=== PATIENT | male | born 1950 ===

== ENCOUNTER 2022-12-27 02:00 | Inpatient (IN) | payer MEDICARE, BC ==
[2022-12-27] MEDS ORDERED: Albuterol/Ipratropium 3.0-0.5 MG/3 ML Neb Soln NEB ONE ×2 (02:13→03:00)
[2022-12-27] MEDS ORDERED: Sodium Chloride 0.9% 10 ML Syringe FLUSH PRN ×2 (02:13→04:40)
[2022-12-27] MEDS ORDERED: methylPREDNISolone Sodium Succinate 125 MG/2 ML SDV IVPUSH ONE (02:13)
[2022-12-27 02:34] LABS: BASOPHILS PERCENT AUTO 0.6 % (0.0-1.0); EOSINOPHILS PERCENT AUTO 3.6 % (1.0-3.0); HEMATOCRIT 45.7 % (40.0-54.0); HEMOGLOBIN 16.2 g/dL (14.0-18.0); LYMPHOCYTES PERCENT AUTO 15.3 % (20.5-50.1); MEAN CORPUSCULAR HEMOGLOBIN 33.8 pg (27.0-34.0); MEAN CORPUSCULAR HGB CONC 35.4 g/dL (33.0-35.0); MEAN CORPUSCULAR VOLUME 95.2 fL (80-100); MONOCYTES PERCENT AUTO 11.7 % (2-8); NEUTROPHILS PERCENT AUTO 68.8 % (42.2-75.2); PLATELET COUNT,PLT 273 10^3/uL (150-450); WHITE BLOOD CELL COUNT,WBC 9.5 10^3/uL (5.0-10.0)
[2022-12-27 02:39] LABS: O2 DELIVERY DEVICE NON REBR MASK
[2022-12-27 02:40] LABS: BASE EXCESS ARTERIAL -2 mmol/L ((-2)-(+3)); BICARBONATE,ARTERIAL 24.9 mmol/L (22-26); O2 SATURATION ARTERIAL 100 % (95-100); PCO2 ARTERIAL 51 mmHg (35-45); PH,ARTERIAL 7.31 (7.35-7.45); PO2 ARTERIAL 206 mmHg (70-100)
[2022-12-27 02:41] LABS: ALLEN TEST positive
[2022-12-27 02:50] LABS: B-TYPE NATRIURETIC PEPTIDE,BNP 30 pg/ml (0-100)
[2022-12-27 02:53] LABS: PROTHROMBIN TIME 9.8 SEC (9.0-12.0)
[2022-12-27 02:57] LABS: A/G RATIO 1.1; ALANINE AMINOTRANSFERASE,ALT 22 U/L (16-63); ALBUMIN 3.7 g/dL (3.4-5.0); ALKALINE PHOSPHATASE 81 U/L (46-116); ANION GAP 13.9 mEq/L (7-13); ASPARTATE AMNIOTRANSFERASE,AST 22 U/L (15-37); BILIRUBIN TOTAL 0.4 mg/dL (0.2-1.0); BLOOD UREA NITROGEN,BUN 17 mg/dL (7-18); BUN/CREATININE RATIO 20.5 (No establ ref range); C-REACTIVE PROTEIN 0.21 ng/dL (<=0.30); CALCIUM 9.1 mg/dL (8.5-10.1); CARBON DIOXIDE,CO2 28 mmol/L (21-32); CHLORIDE,CL 98 mmol/L (98-107); CREATININE 0.83 mg/dL (0.70-1.30); GLUCOSE RANDOM 101 mg/dL (70-99); LACTIC ACID 1.2 mmol/L (0.4-2.0); POTASSIUM,K 3.9 mmol/L (3.5-5.1); PROTEIN TOTAL,TP 7.2 g/dL (6.4-8.2); SODIUM,NA 136 mmol/L (136-145)
[2022-12-27 02:58] LABS: ESTIMATED GFR 94 mL/min (>=60)
[2022-12-27] MEDS ORDERED: Albuterol/Ipratropium 3.0-0.5 MG/3 ML Neb Soln ONE (03:01)
[2022-12-27] MEDS ORDERED: Polyethylene Glycol 3350 Powder 17 GM Packet PO PRN (04:40)
[2022-12-27] MEDS ORDERED: Morphine 2 MG/ML SYRINGE IVPUSH PRN (04:40)
[2022-12-27] MEDS ORDERED: Sennosides/Docusate Sodium 50-8.6 MG Tab PO PRN (04:40)
[2022-12-27] MEDS ORDERED: Magnesium Hydroxide 400 MG/5 ML Susp 30 ML Cup PO PRN (04:40)
[2022-12-27] MEDS ORDERED: Acetaminophen 325 MG Tab PO PRN (04:40)
[2022-12-27] MEDS ORDERED: Acetaminophen/oxyCODONE 325-5 MG Tab PO PRN (04:40)
[2022-12-27] MEDS ORDERED: HYDROmorphone 0.5 MG/0.5 ML Syringe IVPUSH PRN (04:40)
[2022-12-27] MEDS ORDERED: Albuterol/Ipratropium 3.0-0.5 MG/3 ML Neb Soln NEB PRN (04:40)
[2022-12-27] MEDS ORDERED: Ondansetron 4 MG/2 ML SDV IVPUSH PRN (04:40)
[2022-12-27] MEDS ORDERED: Azithromycin 500 MG in Sodium Chloride 0.9% 250 ML IV ONE (04:45)
[2022-12-27] MEDS ORDERED: Melatonin 3 MG Tab PO PRN (04:47)
[2022-12-27] MEDS ORDERED: guaiFENesin/Dextromethorphan 100-10 MG/5 ML Soln 5 ML Cup PO PRN (04:47)
[2022-12-27] MEDS ORDERED: Metoprolol Tartrate 5 MG/5 ML SDV IVPUSH PRN (04:49)
[2022-12-27] MEDS ORDERED: hydrALAZINE 20 MG/ML SDV IVPUSH PRN (04:49)
[2022-12-27] MEDS ORDERED: Ziprasidone Mesylate 20 MG Vial IM PRN (04:53)
[2022-12-27] MEDS ORDERED: Glucagon,Human Recombinant 1 MG Vial IM PRN (04:57)
[2022-12-27] MEDS ORDERED: 50% Dextrose in Water 50 ML Syringe IVPUSH PRN (04:57)
[2022-12-27] MEDS: Albuterol/Ipratropium 3.0-0.5 MG/3 ML Neb Soln NEB SCH ×5 (06:54→23:36)
[2022-12-27] MEDS: Formoterol/Mometasone 200-5 MCG 8.8 GM Inhaler IH SCH ×2 (06:54→17:14)
[2022-12-27] MEDS: Insulin Lispro 100 Units/ML 3 ML Vial SUBCUT SCH ×3 (07:55→17:39)
[2022-12-27] MEDS ORDERED: Nicotine 21 MG/24 Hr Patch TRDERM PRN (09:00)
[2022-12-27] MEDS: methylPREDNISolone Sodium Succinate 125 MG/2 ML SDV IVPUSH SCH ×3 (11:52→23:36)
[2022-12-27] MEDS: Sodium Chloride 0.9% 10 ML Syringe FLUSH SCH ×2 (11:57→20:34)
[2022-12-27] MEDS: guaiFENesin 600 MG Tab.ER PO SCH ×2 (13:25→20:33)
[2022-12-27] MEDS ORDERED: traZODone 50 MG Tab PO PRN (21:00)
[2022-12-28] MEDS: Azithromycin 500 MG in Sodium Chloride 0.9% 250 ML IV SCH (05:00)
[2022-12-28] MEDS: Albuterol/Ipratropium 3.0-0.5 MG/3 ML Neb Soln NEB SCH ×3 (06:14→16:53)
[2022-12-28] MEDS: Formoterol/Mometasone 200-5 MCG 8.8 GM Inhaler IH SCH ×2 (06:17→16:53)
[2022-12-28 06:47] LABS: BASOPHILS PERCENT AUTO 0.1 % (0.0-1.0); HEMOGLOBIN 13.9 g/dL (14.0-18.0); LYMPHOCYTES PERCENT AUTO 3.6 % (20.5-50.1); MEAN CORPUSCULAR HEMOGLOBIN 33.3 pg (27.0-34.0); MEAN CORPUSCULAR HGB CONC 34.8 g/dL (33.0-35.0); MEAN CORPUSCULAR VOLUME 95.9 fL (80-100); MONOCYTES PERCENT AUTO 7.9 % (2-8); NEUTROPHILS PERCENT AUTO 88.4 % (42.2-75.2); PLATELET COUNT,PLT 268 10^3/uL (150-450); RED BLOOD CELL COUNT 4.17 10^6/uL (4.6-6.2); WHITE BLOOD CELL COUNT,WBC 15.1 10^3/uL (5.0-10.0)
[2022-12-28 07:05] LABS: ALBUMIN 3.3 g/dL (3.4-5.0); ANION GAP 12.5 mEq/L (7-13); BILIRUBIN TOTAL 0.3 mg/dL (0.2-1.0); BUN/CREATININE RATIO 20.5 (No establ ref range); C-REACTIVE PROTEIN 0.05 ng/dL (<=0.30); CALCIUM 8.7 mg/dL (8.5-10.1); CREATININE 0.83 mg/dL (0.70-1.30); EST CRCL DRUG DOSING (CG) 71.33 mL/min; MAGNESIUM 2.1 mg/dL (1.8-2.4); POTASSIUM,K 4.5 mmol/L (3.5-5.1); PROTEIN TOTAL,TP 6.5 g/dL (6.4-8.2)
[2022-12-28 07:06] LABS: A/G RATIO 1.03
[2022-12-28] MEDS: methylPREDNISolone Sodium Succinate 125 MG/2 ML SDV IVPUSH SCH ×3 (07:50→17:48)
[2022-12-28] MEDS: Tiotropium Bromide 4 GM Inhalation Spray (2.5mcg/1 dose; 10 doses) INH SCH (08:25)
[2022-12-28] MEDS: Insulin Lispro 100 Units/ML 3 ML Vial SUBCUT SCH ×3 (08:35→17:37)
[2022-12-28] MEDS: guaiFENesin 600 MG Tab.ER PO SCH ×2 (11:07→20:41)
[2022-12-28] MEDS: Sodium Chloride 0.9% 10 ML Syringe FLUSH SCH ×2 (11:08→20:41)
[2022-12-29] MEDS: methylPREDNISolone Sodium Succinate 125 MG/2 ML SDV IVPUSH SCH ×4 (00:12→21:01)
[2022-12-29] MEDS: Albuterol/Ipratropium 3.0-0.5 MG/3 ML Neb Soln NEB SCH ×6 (00:13→23:51)
[2022-12-29] MEDS: Formoterol/Mometasone 200-5 MCG 8.8 GM Inhaler IH SCH ×3 (02:08→17:04)
[2022-12-29] MEDS: Azithromycin 500 MG in Sodium Chloride 0.9% 250 ML IV SCH (05:11)
[2022-12-29] MEDS: Tiotropium Bromide 4 GM Inhalation Spray (2.5mcg/1 dose; 10 doses) INH SCH (05:51)
[2022-12-29 06:34] LABS: BASOPHILS PERCENT AUTO 0.1 % (0.0-1.0); HEMATOCRIT 40.7 % (40.0-54.0); LYMPHOCYTES PERCENT AUTO 3.1 % (20.5-50.1); MEAN CORPUSCULAR HEMOGLOBIN 33.6 pg (27.0-34.0); MEAN CORPUSCULAR HGB CONC 34.4 g/dL (33.0-35.0); MEAN CORPUSCULAR VOLUME 97.6 fL (80-100); MONOCYTES PERCENT AUTO 3.7 % (2-8); NEUTROPHILS PERCENT AUTO 93.1 % (42.2-75.2); PLATELET COUNT,PLT 258 10^3/uL (150-450); RED BLOOD CELL COUNT 4.17 10^6/uL (4.6-6.2)
[2022-12-29 07:10] LABS: ALANINE AMINOTRANSFERASE,ALT 25 U/L (16-63); ALBUMIN 3.3 g/dL (3.4-5.0); ALKALINE PHOSPHATASE 60 U/L (46-116); ANION GAP 13.3 mEq/L (7-13); ASPARTATE AMNIOTRANSFERASE,AST 16 U/L (15-37); BILIRUBIN TOTAL 0.3 mg/dL (0.2-1.0); BLOOD UREA NITROGEN,BUN 18 mg/dL (7-18); CALCIUM 8.8 mg/dL (8.5-10.1); CARBON DIOXIDE,CO2 26 mmol/L (21-32); CHLORIDE,CL 103 mmol/L (98-107); CREATININE 0.72 mg/dL (0.70-1.30); EST CRCL DRUG DOSING (CG) 82.23 mL/min; GLUCOSE RANDOM 134 mg/dL (70-99); MAGNESIUM 2.3 mg/dL (1.8-2.4); POTASSIUM,K 4.3 mmol/L (3.5-5.1); PROTEIN TOTAL,TP 6.3 g/dL (6.4-8.2); SODIUM,NA 138 mmol/L (136-145)
[2022-12-29 07:13] LABS: ESTIMATED GFR 98 mL/min (>=60)
[2022-12-29 07:15] LABS: C-REACTIVE PROTEIN < 0.05 ng/dL (<=0.30)
[2022-12-29] MEDS: Insulin Lispro 100 Units/ML 3 ML Vial SUBCUT SCH ×3 (08:12→16:56)
[2022-12-29] MEDS: guaiFENesin 600 MG Tab.ER PO SCH ×2 (08:30→21:01)
[2022-12-29] MEDS: Sodium Chloride 0.9% 10 ML Syringe FLUSH SCH ×2 (14:17→21:06)
[2022-12-30] MEDS: methylPREDNISolone Sodium Succinate 125 MG/2 ML SDV IVPUSH SCH ×2 (05:22→15:30)
[2022-12-30] MEDS: Azithromycin 500 MG in Sodium Chloride 0.9% 250 ML IV SCH (05:24)
[2022-12-30] MEDS: Formoterol/Mometasone 200-5 MCG 8.8 GM Inhaler IH SCH (06:16)
[2022-12-30] MEDS: Albuterol/Ipratropium 3.0-0.5 MG/3 ML Neb Soln NEB SCH ×2 (06:16→11:15)
[2022-12-30] MEDS: Tiotropium Bromide 4 GM Inhalation Spray (2.5mcg/1 dose; 10 doses) INH SCH (06:16)
[2022-12-30 06:34] LABS: BASOPHILS PERCENT AUTO 0.1 % (0.0-1.0); HEMATOCRIT 38.4 % (40.0-54.0); HEMOGLOBIN 13.1 g/dL (14.0-18.0); LYMPHOCYTES PERCENT AUTO 4.8 % (20.5-50.1); MEAN CORPUSCULAR HEMOGLOBIN 33.4 pg (27.0-34.0); MEAN CORPUSCULAR HGB CONC 34.1 g/dL (33.0-35.0); MONOCYTES PERCENT AUTO 5.5 % (2-8); NEUTROPHILS PERCENT AUTO 89.6 % (42.2-75.2); PLATELET COUNT,PLT 250 10^3/uL (150-450); RED BLOOD CELL COUNT 3.92 10^6/uL (4.6-6.2); WHITE BLOOD CELL COUNT,WBC 11.5 10^3/uL (5.0-10.0)
[2022-12-30 06:50] LABS: ALANINE AMINOTRANSFERASE,ALT 28 U/L (16-63); ALBUMIN 2.9 g/dL (3.4-5.0); ALKALINE PHOSPHATASE 56 U/L (46-116); ANION GAP 10.9 mEq/L (7-13); ASPARTATE AMNIOTRANSFERASE,AST 16 U/L (15-37); BILIRUBIN TOTAL 0.3 mg/dL (0.2-1.0); BLOOD UREA NITROGEN,BUN 25 mg/dL (7-18); BUN/CREATININE RATIO 33.8 (No establ ref range); CALCIUM 8.6 mg/dL (8.5-10.1); CARBON DIOXIDE,CO2 29 mmol/L (21-32); CHLORIDE,CL 101 mmol/L (98-107); CREATININE 0.74 mg/dL (0.70-1.30); GLUCOSE RANDOM 107 mg/dL (70-99); MAGNESIUM 2.1 mg/dL (1.8-2.4); POTASSIUM,K 3.9 mmol/L (3.5-5.1); PROTEIN TOTAL,TP 5.7 g/dL (6.4-8.2); SODIUM,NA 137 mmol/L (136-145)
[2022-12-30 06:51] LABS: A/G RATIO 1.04; C-REACTIVE PROTEIN < 0.05 ng/dL (<=0.30); ESTIMATED GFR 97 mL/min (>=60)
[2022-12-30] MEDS: Insulin Lispro 100 Units/ML 3 ML Vial SUBCUT SCH ×2 (08:33→12:53)
[2022-12-30] MEDS: guaiFENesin 600 MG Tab.ER PO SCH (08:41)
[2022-12-30] MEDS: Sodium Chloride 0.9% 10 ML Syringe FLUSH SCH (08:41)
== END 2022-12-30 15:14 | disposition home or self-care (01) | DRG 189 ==
LOC: DL.ED 02:00 → UNDOADMIN 03:12 → DL.MS 03:12
PROVIDERS: ADMIT Internal Medicine; ATTEND Internal Medicine
PROC: 5A09357 Assistance with Respiratory Ventilation, Less than 24 Consecutive Hours, Continuous Positive Airway Pressure (ICD-10-PCS; principal; 2022-12-27)
DX: J96.01 Acute respiratory failure with hypoxia (principal); R06.03 Acute respiratory distress; R65.10 Systemic inflammatory response syndrome (SIRS) of non-infectious origin without acute organ dysfunction; E87.20 Acidosis, unspecified; J44.1 Chronic obstructive pulmonary disease with (acute) exacerbation; I44.5 Left posterior fascicular block; F17.210 Nicotine dependence, cigarettes, uncomplicated; T38.0X5A Adverse effect of glucocorticoids and synthetic analogues, initial encounter; R73.9 Hyperglycemia, unspecified; I10 Essential (primary) hypertension; R09.02 Hypoxemia; Z91.199 Patient's noncompliance with other medical treatment and regimen due to unspecified reason; Z20.822 Contact with and (suspected) exposure to COVID-19; Z79.899 Other long term (current) drug therapy
CPT/HCPCS: 36415; 36600; 71045; 80053; 82803; 82947; 83605; 83735; 83880; 84145; 84484; 85025; 85379; 85610; 85730; 86140; 87040; 87070; 87205; 87804; 93005; 94010; 94060; 94640; 94660; 94664; 94667; 94668; 94762; 99223; 99233; 99238; A9270-GY; J0456; J2930; J3475; J3490; J7050; J7620-GY; U0002

== ENCOUNTER 2024-09-25 15:39 | Emergency (ER) | payer MEDICARE, BC ==
[2024-09-25] MEDS ORDERED: Sodium Chloride 0.9% 10 ML Syringe FLUSH PRN (16:10)
[2024-09-25 16:24] LABS: BASOPHILS PERCENT AUTO 0.5 % (0.0-1.0); HEMATOCRIT 42.5 % (40.0-54.0); HEMOGLOBIN 14.8 g/dL (14.0-18.0); LYMPHOCYTES PERCENT AUTO 18.1 % (20.5-50.1); MEAN CORPUSCULAR HGB CONC 34.8 g/dL (33.0-35.0); MEAN CORPUSCULAR VOLUME 97.7 fL (80-100); MONOCYTES PERCENT AUTO 12.4 % (2-8); PLATELET COUNT,PLT 273 10^3/uL (150-450); RED BLOOD CELL COUNT 4.35 10^6/uL (4.6-6.2); WHITE BLOOD CELL COUNT,WBC 7.9 10^3/uL (5.0-10.0)
[2024-09-25] MEDS: Albuterol/Ipratropium 3.0-0.5 MG/3 ML Neb Soln NEB ONE (16:27)
[2024-09-25] MEDS: methylPREDNISolone Sodium Succinate 125 MG/2 ML SDV IVPUSH ONE (16:28)
[2024-09-25 16:46] LABS: A/G RATIO 1.1; ALBUMIN 3.7 g/dL (3.4-5.0); ANION GAP 10.9 mEq/L (7-13); BILIRUBIN TOTAL 0.4 mg/dL (0.2-1.0); CALCIUM 9.3 mg/dL (8.5-10.1); CREATININE 0.67 mg/dL (0.70-1.30); EST CRCL DRUG DOSING (CG) 92.97 mL/min; MAGNESIUM 1.8 mg/dL (1.8-2.4); POTASSIUM,K 3.9 mmol/L (3.5-5.1); PROTEIN TOTAL,TP 7.2 g/dL (6.4-8.2)
[2024-09-25] MEDS: Take Home: predniSONE 20 MG, 4 Tab Pack PO ONE (17:11)
[2024-09-25] MEDS: Take Home: Levofloxacin 500 MG Tab, 3 Tab Pack PO ONE (17:11)
[2024-09-25] MEDS: Levofloxacin 250 MG Tab PO ONE (17:17)
[2024-09-25] MEDS: Levofloxacin 500 MG Tab PO ONE (17:17)
== END 2024-09-25 17:35 | disposition home or self-care (01) ==
LOC: DL.ED 15:39
DX: J44.1 Chronic obstructive pulmonary disease with (acute) exacerbation (principal); Z79.899 Other long term (current) drug therapy; Z99.81 Dependence on supplemental oxygen
CPT/HCPCS: 36415; 71046; 80053; 83735; 84484; 85025; 96374; 99284; 99285; A9270; J2919

== ENCOUNTER 2024-10-04 20:22 | Emergency (ER) | payer MEDICARE, BC ==
[2024-10-04] MEDS ORDERED: Sodium Chloride 0.9% 10 ML Syringe FLUSH PRN (20:26)
[2024-10-04] MEDS: methylPREDNISolone Sodium Succinate 125 MG/2 ML SDV IVPUSH ONE (20:35)
[2024-10-04] MEDS: Albuterol/Ipratropium 3.0-0.5 MG/3 ML Neb Soln NEB ONE (20:35)
[2024-10-04 20:36] LABS: BASOPHILS PERCENT AUTO 0.2 % (0.0-1.0); EOSINOPHILS PERCENT AUTO 0.4 % (1.0-3.0); HEMATOCRIT 48.9 % (40.0-54.0); HEMOGLOBIN 16.8 g/dL (14.0-18.0); LYMPHOCYTES PERCENT AUTO 15.5 % (20.5-50.1); MEAN CORPUSCULAR HEMOGLOBIN 33.7 pg (27.0-34.0); MEAN CORPUSCULAR HGB CONC 34.4 g/dL (33.0-35.0); MONOCYTES PERCENT AUTO 9.3 % (2-8); NEUTROPHILS PERCENT AUTO 74.6 % (42.2-75.2); PLATELET COUNT,PLT 336 10^3/uL (150-450); RED BLOOD CELL COUNT 4.99 10^6/uL (4.6-6.2); WHITE BLOOD CELL COUNT,WBC 8.2 10^3/uL (5.0-10.0)
[2024-10-04 20:51] LABS: O2 DELIVERY DEVICE NASAL CANNULA
[2024-10-04] MEDS: methylPREDNISolone Sodium Succinate 125 MG/2 ML SDV IM ONE (20:59)
[2024-10-04 21:02] LABS: ANION GAP 10.5 mEq/L (7-13); BILIRUBIN TOTAL 0.4 mg/dL (0.2-1.0); BUN/CREATININE RATIO 9.4 (No establ ref range); CALCIUM 9.7 mg/dL (8.5-10.1); CREATININE 0.96 mg/dL (0.70-1.30); EST CRCL DRUG DOSING (CG) 62.03 mL/min; POTASSIUM,K 4.5 mmol/L (3.5-5.1)
[2024-10-04] MEDS ORDERED: Albuterol/Ipratropium 3.0-0.5 MG/3 ML Neb Soln NEB ONE (21:03)
[2024-10-04 21:05] LABS: BASE EXCESS VENOUS 1.4 mmol/l ((-2)-(+3)); BICARBONATE,VENOUS 31 mmol/l (19-25); O2 SATURATION VENOUS 34.7 % (60-80); PH,VENOUS 7.26 (7.31-7.41); PO2 VENOUS 29 mmHg (35-42)
[2024-10-04 21:07] LABS: PCO2 VENOUS 71 mmHg (41-51)
[2024-10-04 21:11] LABS: LACTIC ACID 1.9 mmol/L (0.4-2.0)
[2024-10-04 21:29] LABS: MAGNESIUM 2.1 mg/dL (1.8-2.4)
[2024-10-04 21:31] LABS: INR 0.9 (0.9-1.2); PROTHROMBIN TIME 9.2 SEC (9.0-12.0)
[2024-10-04 21:35] LABS: PTT,PARTIAL THROMBOPLSTIN TIME 25.5 SEC (22.0-34.0)
[2024-10-04] MEDS: Sodium Chloride 0.9% 1,000 ML IV ONE (22:22)
== END 2024-10-04 23:00 ==
LOC: DL.ED 20:22
DX: J44.1 Chronic obstructive pulmonary disease with (acute) exacerbation (principal); Z79.899 Other long term (current) drug therapy; Z72.0 Tobacco use
CPT/HCPCS: 36415; 71045; 80053; 82803; 83605; 83735; 83880; 84145; 84484; 85025; 85379; 85610; 85730; 87428-QW; 93005; 93010; 94660; 94762; 96361; 96374; 99284; 99285-25; A9270-GY; J2919; J7030